=== PATIENT | female | born 1965 | race American Indian/Alaskan Native ===

== ENCOUNTER 2018-08-21 14:38 | Emergency (ER) | payer OTHER ==
--- NOTE | 2018-08-21 14:51 | Event Note ---
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 Further treatment and workup at subsequent clinical providers discretion. Patient/guardian urged not to elope from the ED as their condition may be serious if not clinically assessed and managed. Initial orders include: medical clearance protocol
[2018-08-21 15:13] LABS: Basophils % (Auto) 0.6 % (0.0-1.8); Eosinophils % (Auto) 0.2 % (0.0-4.3); Hematocrit 42.8 % (30.3-42.9); Hemoglobin 14.4 gm/dl (10.1-14.3); Lymphocytes # (Auto) 1.9 K/mm3 (1.2-5.4); Lymphocytes % (Auto) 27.2 % (13.4-35.0); Mean Corpuscular HGB Conc 34 % (30-34); Mean Corpuscular Volume 85 fl (79-97); Monocytes # (Auto) 0.4 K/mm3 (0.0-0.8); Monocytes % (Auto) 6.3 % (0.0-7.3); Platelet Count 249 K/mm3 (140-440); Red Blood Count 5.05 M/mm3 (3.65-5.03)
[2018-08-21 15:31] LABS: Alanine Aminotransferase 22 units/L (7-56); Albumin 4.7 g/dL (3.9-5); BUN/Creatinine Ratio 13; Blood Urea Nitrogen 9 mg/dL (7-17); Calcium 9.7 mg/dL (8.4-10.2); Hemolysis Index 1
[2018-08-21] MEDS ORDERED: NORVASC PO ONE (15:43)
--- NOTE | 2018-08-21 15:43 | Emergency Department Report ---
HPI - General Chief Complaint: Medical Clearance Time Seen by Provider: 08/21/18 14:47 - HPI HPI: 53-year-old -[place] female presents to the emergency department for medical clearance so that she can go to [facility] for drug and alcohol amparo abilitation. She tried to go directly to the facility but was told she needed to come to the emergency department. She uses cocaine and drinks alcohol daily, both of which she last used this morning. She has a past medical history of asthma and hypertension. She denies any physical complaints at this time. She denies any history of alcohol withdrawal issues including seizures or DTs. ED Past Medical Hx - Past Medical History Previous Medical History?: Yes Hx Hypertension: Yes Hx Asthma: Yes Additional medical history: tubal ligation - Surgical History Past Surgical History?: Yes Additional Surgical History: heart monitor(LINQ)08/2014 - Social History Smoking Status: Unknown if ever smoked Substance Use Type: Alcohol ED Review of Systems ROS: Stated complaint: MEDICAL CLEARANCE Other details as noted in HPI Comment: All other systems reviewed and negative Constitutional: denies: chills, fever Eyes: denies: eye pain, vision change ENT: denies: ear pain, throat pain Respiratory: denies: cough, shortness of breath Cardiovascular: denies: chest pain, palpitations Gastrointestinal: denies: abdominal pain, vomiting Genitourinary: denies: dysuria, frequency Musculoskeletal: denies: back pain, arthralgia Skin: denies: rash, lesions Neurological: denies: headache, weakness Physical Exam - Physical Exam Vital Signs: Vital Signs 08/21/18 14:39 Temperature 98 F Pulse Rate 109 H Respiratory 16 Rate Blood Pressure 182/92 [Left] O2 Sat by Pulse 96 Oximetry Physical Exam: GENERAL: The patient is well-developed well-nourished. HENT: Normocephalic. Atraumatic. Patient has moist mucous membranes. EYES: Extraocular motions are intact. NECK: Supple. Trachea is midline. CHEST/LUNGS: Clear to auscultation. There is no respiratory distress noted. HEART/CARDIOVASCULAR: Regular. There is no tachycardia. There is no murmur. ABDOMEN: There is no abdominal distention. SKIN: Skin is warm and dry. NEURO: The patient is awake, alert, and oriented. The patient is cooperative. The patient has no focal neurologic deficits. The patient has normal speech. MUSCULOSKELETAL: There is no tenderness or deformity. There is no limitation range of motion. There is no evidence of acute injury. ED Course Vital Signs 08/21/18 14:39 Temperature 98 F Pulse Rate 109 H Respiratory 16 Rate Blood Pressure 182/92 [Left] O2 Sat by Pulse 96 Oximetry ED Medical Decision Making - Lab Data Result diagrams: 08/21/18 14:57 08/21/18 14:57 - Medical Decision Making This patient presents to the emergency department for a medical clearance so that she can go to [facility] for rehabilitation/detox of alcohol and cocaine. She is calm and appropriate and does not appear acutely intoxicated. Blood alcohol level was negative. Urine drug screen is positive for cocaine and marijuana. The rest of the patient's labs are unremarkable. She did have some hypertension and was given a dose of Norvasc and Catapres and her blood pressure came down to a much more reasonable level. At this point the patient appears medically cleared for psychiatric placement. Critical Care Time: No Critical care attestation.: If time is entered above; I have spent that time in minutes in the direct care of this critically ill patient, excluding procedure time. ED Disposition Clinical Impression: Cocaine abuse, History of alcohol abuse Hypertension Qualifiers: Hypertension type: essential hypertension Qualified Code(s): I10 - Essential ( primary) hypertension Disposition: DC/TX-65 PSY HOSP/PSY UNIT Is pt being admited?: No Condition: Stable Instructions: Hypertension (ED), Cocaine Abuse (ED), Abuse of Alcohol (ED) Additional Instructions: It appears that were going to be sent over to [facility]. Once you are done with your drug and alcohol rehabilitation/detox, please make sure that you follow up with a primary care physician regarding your elevated blood pressure readings. Try to stay away from foods that are high in salt and caffeinated products. Keep a blood pressure log. Return to the emergency department with any uncontrolled blood pressure, development of chest pain or shortness of breath, or with any acute distress. Referrals: KELLY IBRAHIM DO [Staff Physician] - 3-5 Days [facility] [Outside] - 3-5 Days Time of Disposition: 18:45
[2018-08-21 16:13] LABS: Bilirubin,Urine NEG (Negative); Blood,Urine MOD (Negative); Color,Urine Yellow (Yellow); Mucus,Urine 1+ /HPF; Protein,Urine <15 mg/dL mg/dL (Negative); Urobilinogen,Urine < 2.0 mg/dL (<2.0); WBC,Urine < 1.0 /HPF (0.0-6.0)
[2018-08-21 16:53] LABS: Amphetamine Screen,Urine PRESUMPTIVE NEGATIVE; Benzodiazepines Screen,Urine PRESUMPTIVE NEGATIVE; Methadone Screen,Urine PRESUMPTIVE NEGATIVE; Opiate Screen,Urine PRESUMPTIVE NEGATIVE
[2018-08-21] MEDS ORDERED: CATAPRES PO ONE (17:10)
[2018-08-21 17:12] LABS: Cannabinoid Screen,Urine PRESUMPTIVE POSITIVE; Cocaine Screen,Urine PRESUMPTIVE POSITIVE
[2018-08-21 19:53] VITALS: BP 129/87
== END 2018-08-21 21:02 ==
LOC: ED 14:38
DX: F12.90 Cannabis use, unspecified, uncomplicated (principal); F10.10 Alcohol abuse, uncomplicated; I10 Essential (primary) hypertension; J45.909 Unspecified asthma, uncomplicated; Z98.51 Tubal ligation status
CPT/HCPCS: 36415; 80053; 80307; 81001; 84443; 85025; 99284; G0480; 80320

== ENCOUNTER 2018-09-07 15:10 | Emergency (ER) | payer SELFPAY ==
--- NOTE | 2018-09-07 16:21 | XRay Report ---
CHEST 2 VIEWS INDICATION: Chest Pain. COMPARISON: None FINDINGS: Support devices: Loop recorder overlies left heart border. Heart: Within normal limits. Lungs: No acute air space or interstitial disease. Pleura: No significant pleural effusion. No pneumothorax. Additional findings: None. IMPRESSION: 1. No acute findings. Signer Name: Humberto Maguire MD Signed: 09/07/2018 4:16 PM Workstation Name: [id number]
[2018-09-07 16:29] LABS: INR 0.99 (0.87-1.13)
[2018-09-07 16:30] LABS: Partial Thromboplastin Time 31.6 Sec. (24.2-36.6)
[2018-09-07 16:40] LABS: BUN/Creatinine Ratio 14; Blood Urea Nitrogen 10 mg/dL (7-17); Calcium 9.1 mg/dL (8.4-10.2); Hemolysis Index 42
[2018-09-07 17:06] LABS: Amphetamine Screen,Urine PRESUMPTIVE NEGATIVE; Benzodiazepines Screen,Urine PRESUMPTIVE NEGATIVE; Cannabinoid Screen,Urine PRESUMPTIVE NEGATIVE; Cocaine Screen,Urine PRESUMPTIVE NEGATIVE; Methadone Screen,Urine PRESUMPTIVE NEGATIVE; Opiate Screen,Urine PRESUMPTIVE NEGATIVE
[2018-09-07 17:26] LABS: Basophils % (Auto) 0.9 % (0.0-1.8); Eosinophils # (Auto) 0.1 K/mm3 (0.0-0.4); Eosinophils % (Auto) 1.8 % (0.0-4.3); Hematocrit 38.7 % (30.3-42.9); Lymphocytes # (Auto) 1.9 K/mm3 (1.2-5.4); Mean Corpuscular HGB Conc 34 % (30-34); Mean Corpuscular Volume 86 fl (79-97); Monocytes # (Auto) 0.4 K/mm3 (0.0-0.8); Monocytes % (Auto) 8.4 % (0.0-7.3); Platelet Count 260 K/mm3 (140-440); Red Blood Count 4.52 M/mm3 (3.65-5.03); Red Cell Distribution Width 14.5 % (13.2-15.2)
--- NOTE | 2018-09-07 17:49 | Emergency Department Report ---
ED Chest Pain HPI - General Chief Complaint: Chest Pain Stated Complaint: CHEST PAIN Time Seen by Provider: 09/07/18 15:31 Source: patient, family Mode of arrival: Stretcher Limitations: No Limitations - History of Present Illness Initial Comments: 53-year-old female with a past medical history asthma, CVA without residual deficit, hypertension, alcohol abuse, and cocaine abuse presents to the hospital complains of chest pain that started at 10 AM while sitting in class. Pain is at the left parasternal area and described as sharp. Pain is worse with palpation at one specific part of the chest. Patient took Goody's powder prior to arrival and reports the pain has since improved. She denies shortness of breath, nausea, vomiting, diaphoresis, calf tenderness, leg edema, history of PE, or history DVT. Patient does not take aspirin daily. Patient denies known family history of CAD. She states she might have had a history of elevated cholesterol, she smokes cigarettes, and when she was here on August 21 for alcohol and cocaine detox her UDS was positive for cocaine and thc. Patient denies any recent cocaine use. She reports she had a stress test performed in 2014 after a stroke. She also had a loop heart monitor placed in 2014 which was supposed to be removed in 3 years. 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 She is currently taking blood pressure medication. - Related Data Previous Rx's Medication Instructions Recorded Last Taken Type Aspirin 325 mg PO ONCE #30 tablet 09/07/18 Unknown Rx Allergies Allergy/AdvReac Type Severity Reaction Status Date / Time No Known Allergies Allergy Verified 08/21/18 14:39 Heart Score - HEART Score History: Slightly suspicious EKG: Normal Age: 45-65 Risk factors: > 3 risk factors or hx of atherosclerotic disease Troponin: < normal limit HEART Score: 3 ED Review of Systems ROS: Stated complaint: CHEST PAIN Other details as noted in HPI Comment: All other systems reviewed and negative ED Past Medical Hx - Past Medical History Hx Hypertension: Yes Hx Asthma: Yes Additional medical history: tubal ligation - Surgical History Past Surgical History?: Yes Additional Surgical History: heart monitor(LINQ)08/2014 - Social History Smoking Status: Never Smoker Substance Use Type: None - Medications Home Medications: Home Medications Medication Instructions Recorded Confirmed Last Taken Type Aspirin 325 mg PO ONCE #30 tablet 09/07/18 Unknown Rx ED Physical Exam - General Limitations: No Limitations - Other Other exam information: General: No limitations, patient is alert in no acute distress Head exam: Atraumatic, normocephalic Eyes exam: Normal appearance ENT: Moist mucous membrane Neck exam: Normal inspection, full range of motion, no meningismus nontender Respiratory exam: Clear to auscultation bilateral, no wheezes, rales, crackles Cardiovascular: Normal rate and rhythm,. Reproducible left parasternal chest wall tenderness Abdomen: Soft, nondistended, and nontender, with normal bowel sounds, no rebound, or guarding Extremity: Full range of motion normal inspection no deformity, no calf tenderness or leg edema Back: Normal Inspection, full range of motion, no tenderness Neurologic: Alert, oriented x3, cranial nerves intact, no motor or sensory deficit Psychiatric: normal affect, normal mood Skin: Warm, dry, intact ED Course Vital Signs 09/07/18 09/07/18 09/07/18 15:31 15:34 16:00 Temperature 98 F Pulse Rate 87 Respiratory 16 Rate Blood Pressure 122/74 122/74 122/74 O2 Sat by Pulse 96 98 98 Oximetry 09/07/18 09/07/18 09/07/18 16:30 17:00 17:30 Temperature Pulse Rate 85 87 86 Respiratory 21 21 28 H Rate Blood Pressure 134/77 129/76 119/69 O2 Sat by Pulse 98 98 99 Oximetry 09/07/18 09/07/18 17:36 18:01 Temperature Pulse Rate 94 H Respiratory 16 29 H Rate Blood Pressure 126/83 O2 Sat by Pulse 99 98 Oximetry - Reevaluation(s) Reevaluation #1: 09/07/18 19:26 Contrary to what is documented patient is not tachypneic and has a respiratory rate less than 20 with no signs of respiratory distress. JENNIFER score - Jennifer Score Age > 65: (0) No Aspirin use within the Past 7 Days: (0) No 3 or more CAD Risk Factors: (1) Yes 2 or more Angina events in past 24 hrs: (0) No Known CAD with more than 50% Stenosis: (0) No Elevated Cardiac Markers: (0) No ST Deviation Greater than 0.5mm: (0) No JENNIFER Score: 1 ED Medical Decision Making - Lab Data Result diagrams: 09/07/18 17:00 09/07/18 16:09 Lab Results 0709/07/18 09/07/18 Range/Units 16:09 16:09 16:09 WBC (4.5-11.0) K/mm3 RBC (3.65-5.03) M/mm3 Hgb (10.1-14.3) gm/dl Hct (30.3-42.9) % MCV (79-97) fl MCH (28-32) pg MCHC (30-34) % RDW (13.2-15.2) % Plt Count (140-440) K/mm3 Lymph % (Auto) (13.4-35.0) % [place] % (Auto) (0.0-7.3) % Eos % (Auto) (0.0-4.3) % Baso % (Auto) (0.0-1.8) % Lymph # (1.2-5.4) K/mm3 [place] # (0.0-0.8) K/mm3 Eos # (0.0-0.4) K/mm3 Baso # (0.0-0.1) K/mm3 Seg Neutrophils % (40.0-70.0) % Seg Neutrophils # (1.8-7.7) K/mm3 PT 12.8 (12.2-14.9) Sec. INR 0.99 (0.87-1.13) APTT 31.6 (24.2-36.6) Sec. Sodium 142 (137-145) mmol/L Potassium 3.8 (3.6-5.0) mmol/L Chloride 100.0 (98-107) mmol/L Carbon Dioxide 31 H (22-30) mmol/L Anion Gap 15 mmol/L BUN 10 (7-17) mg/dL Creatinine 0.7 (0.7-1.2) mg/dL Estimated GFR > 60 ml/min BUN/Creatinine Ratio 14 % Glucose 106 H (65-100) mg/dL Calcium 9.1 (8.4-10.2) mg/dL Magnesium 2.00 (1.7-2.3) mg/dL Total Creatine Kinase 150 H (30-135) units/L Troponin T < 0.010 (0.00-0.029) ng/mL Urine Opiates Screen Urine Methadone Screen Ur Barbiturates Screen Ur Phencyclidine Scrn Ur Amphetamines Screen U Benzodiazepines Scrn Urine Cocaine Screen U Marijuana (THC) Screen Drugs of Abuse Note Plasma/Serum Alcohol (0-0.07) % 09/07/18 09/07/18 09/07/18 Range/Units 16:09 16:45 17:00 WBC 5.3 (4.5-11.0) K/mm3 RBC 4.52 (3.65-5.03) M/mm3 Hgb 13.0 (10.1-14.3) gm/dl Hct 38.7 (30.3-42.9) % MCV 86 (79-97) fl MCH 29 (28-32) pg MCHC 34 (30-34) % RDW 14.5 (13.2-15.2) % Plt Count 260 (140-440) K/mm3 Lymph % (Auto) 36.0 H (13.4-35.0) % [place] % (Auto) 8.4 H (0.0-7.3) % Eos % (Auto) 1.8 (0.0-4.3) % Baso % (Auto) 0.9 (0.0-1.8) % Lymph # 1.9 (1.2-5.4) K/mm3 [place] # 0.4 (0.0-0.8) K/mm3 Eos # 0.1 (0.0-0.4) K/mm3 Baso # 0.0 (0.0-0.1) K/mm3 Seg Neutrophils % 52.9 (40.0-70.0) % Seg Neutrophils # 2.8 (1.8-7.7) K/mm3 PT (12.2-14.9) Sec. INR (0.87-1.13) APTT (24.2-36.6) Sec. Sodium (137-145) mmol/L Potassium (3.6-5.0) mmol/L Chloride (98-107) mmol/L Carbon Dioxide (22-30) mmol/L Anion Gap mmol/L BUN (7-17) mg/dL Creatinine (0.7-1.2) mg/dL Estimated GFR ml/min BUN/Creatinine Ratio % Glucose (65-100) mg/dL Calcium (8.4-10.2) mg/dL Magnesium (1.7-2.3) mg/dL Total Creatine Kinase (30-135) units/L Troponin T (0.00-0.029) ng/mL Urine Opiates Screen Presumptive negative Urine Methadone Screen Presumptive negative Ur Barbiturates Screen Presumptive negative Ur Phencyclidine Scrn Presumptive negative Ur Amphetamines Screen Presumptive negative U Benzodiazepines Scrn Presumptive negative Urine Cocaine Screen Presumptive negative U Marijuana (THC) Screen Presumptive negative Drugs of Abuse Note Disclamer Plasma/Serum Alcohol < 0.01 (0-0.07) % // Range/Units 18:02 WBC (4.5-11.0) K/mm3 RBC (3.65-5.03) M/mm3 Hgb (10.1-14.3) gm/dl Hct (30.3-42.9) % MCV (79-97) fl MCH (28-32) pg MCHC (30-34) % RDW (13.2-15.2) % Plt Count (140-440) K/mm3 Lymph % (Auto) (13.4-35.0) % [place] % (Auto) (0.0-7.3) % Eos % (Auto) (0.0-4.3) % Baso % (Auto) (0.0-1.8) % Lymph # (1.2-5.4) K/mm3 [place] # (0.0-0.8) K/mm3 Eos # (0.0-0.4) K/mm3 Baso # (0.0-0.1) K/mm3 Seg Neutrophils % (40.0-70.0) % Seg Neutrophils # (1.8-7.7) K/mm3 PT (12.2-14.9) Sec. INR (0.87-1.13) APTT (24.2-36.6) Sec. Sodium (137-145) mmol/L Potassium (3.6-5.0) mmol/L Chloride (98-107) mmol/L Carbon Dioxide (22-30) mmol/L Anion Gap mmol/L BUN (7-17) mg/dL Creatinine (0.7-1.2) mg/dL Estimated GFR ml/min BUN/Creatinine Ratio % Glucose (65-100) mg/dL Calcium (8.4-10.2) mg/dL Magnesium (1.7-2.3) mg/dL Total Creatine Kinase (30-135) units/L Troponin T < 0.010 (0.00-0.029) ng/mL Urine Opiates Screen Urine Methadone Screen Ur Barbiturates Screen Ur Phencyclidine Scrn Ur Amphetamines Screen U Benzodiazepines Scrn Urine Cocaine Screen U Marijuana (THC) Screen Drugs of Abuse Note Plasma/Serum Alcohol (0-0.07) % - EKG Data -: EKG Interpreted by Me EKG shows normal: sinus rhythm, axis (qrs 84), QRS complexes (qrsd 95), ST-T waves (no stemi ) Rate: normal (75) - EKG Data When compared to previous EKG there are: previous EKG unavailable - Radiology Data Radiology results: report reviewed CHEST 2 VIEWS INDICATION: Chest Pain. COMPARISON: None FINDINGS: Support devices: Loop recorder overlies left heart border. Heart: Within normal limits. Lungs: No acute air space or interstitial disease. Pleura: No significant pleural effusion. No pneumothorax. Additional findings: None. IMPRESSION: 1. No acute findings. - Medical Decision Making pt pain improved since taking any powders prior to arrival. Patient has a low heart score. Pain is reproducible on examination with unremarkable x-ray. She be discharged home with outpatient follow-up. Patient encouraged to take aspirin daily given a history of stroke - Differential Diagnosis chest pain, costochondritis, PR, stable angina, pulmonary embolus Critical Care Time: No Critical care attestation.: If time is entered above; I have spent that time in minutes in the direct care of this critically ill patient, excluding procedure time. ED Disposition Clinical Impression: Chest wall pain Disposition: - TO HOME OR SELFCARE Is pt being admited?: No Does the pt Need Aspirin: No Condition: Stable Instructions: Chest Pain (ED) Additional Instructions: Take the medication as prescribed. Follow up with your doctor or the clinic/doctor provided. Return if symptoms worsen as indicated by your discharge instructions Prescriptions: Aspirin 325 mg PO ONCE #30 tablet Referrals: PHOEBE TRINH MD [Primary Care Provider] - 3-5 Days BARBRA MORENO MD [Staff Physician] - 2-3 Days Time of Disposition: 19:27
[2018-09-07 19:53] VITALS: BP 120/71
== END 2018-09-07 19:53 | disposition home or self-care (01) ==
LOC: ED 15:10
DX: R07.89 Other chest pain (principal); I10 Essential (primary) hypertension; J45.909 Unspecified asthma, uncomplicated; Z98.51 Tubal ligation status; F14.10 Cocaine abuse, uncomplicated
CPT/HCPCS: 36415; 71046; 80048; 80307; 80320; 82550; 83735; 84484; 85025; 85610; 85730; 93005; 93010; G0480